=== PATIENT | female | born 1945 | race Caucasian/White ===

== ENCOUNTER 2024-06-30 18:28 | Emergency (ER) | payer MEDICARE ==
[~2024-06-30] VITALS: Ht 142.2 cm; Wt 54.4 kg
[2024-06-30 18:40] VITALS: BP 149/73
[2024-06-30 18:45] VITALS: BP 132/69
[2024-06-30] MEDS ORDERED: FUROSEMIDE 40 MG/4 ML SDV IV ONE (18:50)
[2024-06-30] MEDS ORDERED: methylPREDNISolone SODIUM SUCC 125 MG/2 ML SDV IV ONE (18:50)
[2024-06-30 18:58] LABS: BASO% 0.5 % (0-3); EOS% 9.7 % (0-8); HEMATOCRIT 38.6 % (37.0-47.0); HEMOGLOBIN 12.3 g/dl (12.0-16.0); IMMATURE GRANULOCYTES 0.3 % (0.0-5.0); LYMPH% 10.7 % (15-41); MEAN CELL VOLUME 95.5 fL CALC (80.0-100.0); MEAN CORPUSCULAR HGB 30.4 pG CALC (26.0-32.0); MEAN CORPUSCULAR HGB CONC 31.9 g/dL CAL (32.0-36.0); MONO% 7.9 % (2-13); NEUT# 4.3 thou/uL (2.00-7.15); NEUT% 70.9 % (42-76); RED BLOOD COUNT 4.04 mill/uL (4.20-5.60); RED CELL DISTRI WIDTH 12.9 % (11.5-15.5)
[2024-06-30 19:14] LABS: BILIRUBIN, TOTAL 0.5 mg/dL (0.02-1.3); CREATININE 0.9 mg/dL (0.5-1.0); POTASSIUM 3.9 mmol/l (3.5-5.1); TOTAL PROTEIN 7.4 g/dL (6.3-8.2)
[2024-06-30] MEDS ORDERED: IPRATROPIUM-Albuterol 0.5MG-2.5MG/3 ML NEB ONE (19:25)
[2024-06-30 20:25] VITALS: BP 143/66
[2024-06-30] MEDS ORDERED: ALBUTEROL SUL0.083 % IN (20:28)
[2024-06-30] MEDS ORDERED: SYMBICORT1 AE1 IN (20:28)
[2024-06-30] MEDS ORDERED: DECADRON4 MG PO (20:28)
[2024-06-30] MEDS ORDERED: VENTOLIN HFA IN (20:28)
[2024-06-30 20:30] VITALS: BP 139/72
[2024-06-30] MEDS ORDERED: ALBUTEROL SULFATE 8 GM INH IN ONE (20:30)
[2024-06-30 21:00] VITALS: BP 139/72
== END 2024-06-30 21:00 | disposition home or self-care (01) ==
LOC: ED 18:28
PROVIDERS: Family Medicine
DX: J84.10 Pulmonary fibrosis, unspecified (principal); I50.9 Heart failure, unspecified; Z99.81 Dependence on supplemental oxygen; Z20.822 Contact with and (suspected) exposure to COVID-19
CPT/HCPCS: J1940